=== PATIENT | female | born 2000 | race Caucasian/White ===

== ENCOUNTER 2019-03-19 11:04 | Observation (INO) | payer BC, OTHER ==
--- OUTSIDE RECORDS SUMMARY | 2019-03-19 11:21 | XMS REPORT | Continuity of Care Document ---
:2000 External Reference #:[id number] Author Name Gabe Barrett MD (transmitted by agent of provider Alyssa Crane) Address [address], [place] [address] Problems Active Problems Provider Date Chronic migraine without aura Zahira Mccabe MD Onset: 05/02/2017 Social History Type Date Description Comments Sex Unknown ETOH Use Occasionally consumes alcohol Tobacco Use Start: Unknown Patient has never smoked Smoking Status Reviewed: 03/16/19 Patient has never smoked Allergies, Adverse Reactions, Alerts Description No Known Drug Allergies Medications Active Medications SIG Qnty Indications Ordering Provider Date Sumatriptan Succinate 1 tab may repeat 14tabs Gabe Barrett MD 2018 once in 2 hours 100mg Tablets max 2 days a week Butalbital/Acetaminop take 1 capsule as 5caps Gabe Barrett MD 2018 hen/Caffeine needed for bad migraine n mdd 1 50-325-40mg Capsules Naproxen 1 up to twice a 60tabs Zahira Mccabe MD 05/01/2017 500mg Tablets day as needed for migraine with sumatriptan. avoid using more than 2 to 3 times per week Promethazine HCL take 1 tablet for Zahira Mccabe MD 05/01/2017 25mg nausea with Tablets migraine Vitamin D3 Complete 1 by mouth every Unknown day Tablets Vitamin C 1 by mouth every Unknown W/Vitamin E day [id number] Capsules Vitamin B 12 1 tab daily Unknown 100mg Tablets Claritin 1 tab daily as Unknown 10mg Capsules needed Folic Acid take one tablet Unknown 400mcg by mouth every Tablets day (supplement) Aviane 1 tab by mouth Sadie Beckman 0.1-20mg-mcg every day Levi, P.A. Tablets Immunizations Description No Information Available Vital Signs Date Vital Result Comment 03/16/2019 10:56am Height 65 inches 5'5" Weight 164.00 lb Heart Rate 68 /min BP Systolic Sitting 128 mmHg BP Diastolic Sitting 96 mmHg Respiratory Rate 16 /min BMI (Body Mass Index) 27.3 kg/m2 04/22/2018 11:50am Height 65 inches 5'5" Weight 155.00 lb BP Systolic Sitting 122 mmHg BP Diastolic Sitting 72 mmHg BMI (Body Mass Index) 25.8 kg/m2 Height Percentile 61 % Weight Percentile 84th Results Description No Information Available Procedures Description No Information Available Medical Devices Description No Information Available Encounters Description No Information Available Assessments Date Code Description Provider 03/16/2019 G43.719 Chronic migraine without aura, intractable, Gabe Barrett MD without status migrainosus Plan of Treatment Future Appointment(s):03/21/2020 10:30 am - Gabe Barrett MD at [facility] [id number]/16/2019 - Gabe Barrett MDG43.719 Chronic migraine without aura, intractable, without status migrainosusComments:will increase her sumitriptan to 100mg now and will take twice today and if not better will take 800mg ibruprofen with the secodn dose and will try to get sleep if this does not work she will call tomorrow and will start on short course of steroids. Her migraines have responded well to botox and I discussed ajovy as an alternative but things are going well enough that a change may be as or more likely to worsen things then to improve things. Will continue botox.Follow up: 1 year but sooner if still has problems Functional Status Description No Information Available Mental Status Description No Information Available Referrals Description No Information Available
--- OUTSIDE RECORDS SUMMARY | 2019-03-19 11:21 | XMS REPORT | Continuity of Care Document ---
:2000 External Reference #:[id number] Author Name Gabe Barrett MD (transmitted by agent of provider Emily Mauro) Address [address], [place] [address] Problems Active Problems Provider Date Chronic migraine without aura Zahira Mccabe MD Onset: 05/02/2017 Social History Type Date Description Comments Sex Unknown ETOH Use Occasionally consumes alcohol 1-2 drinks per week Tobacco Use Start: Unknown Patient has never smoked Smoking Status Reviewed: 03/19/19 Patient has never smoked Allergies, Adverse Reactions, Alerts Active Allergies Reaction Severity Comments Date Sea Mist 03/19/2019 Inactive Allergies NKDA 05/02/2017 Medications Active Medications SIG Qnty Indications Ordering Provider Date Prednisone 5 tabs for 4 days 60tabs Gabe Barrett MD 03/17/2019 10mg Tablets then 4 tabs by mouth for 4 days 3 tabs for 4 days 2 tabs by mouth for 4 days 1 tab by mouth for 4 days Sumatriptan Succinate 1 tab may repeat 14tabs [...] by mouth every Unknown W/Vitamin E day [id number] Capsules Vitamin B 12 1 tab daily Unknown 100mg Tablets Claritin 1 tab daily as Unknown 10mg Capsules needed Folic Acid take one tablet Unknown 400mcg by mouth every Tablets day (supplement) Aviane 1 tab by mouth Sadie Beckman 0.1-20mg-mcg every day Levi, P.A. Tablets Immunizations Description No Information Available Vital Signs Date Vital Result Comment 03/19/2019 9:37am Height 65 inches 5'5" Weight 150.00 lb Heart Rate 68 /min BP Systolic 122 mmHg BP Diastolic 82 mmHg BMI (Body Mass Index) 25.0 kg/m2 03/16/2019 10:56am Height 65 inches 5'5" Weight 164.00 lb Heart Rate 68 /min BP Systolic Sitting 128 mmHg BP Diastolic Sitting 96 mmHg Respiratory Rate 16 /min BMI (Body Mass Index) 27.3 kg/m2 Results Description No Information Available Procedures Description No Information Available Medical Devices Description No Information Available Encounters Type Date Location Provider Dx Diagnosis Office Visit 03/19/2019 [facility] Gabe Barrett, G43.719 Chronic migraine 9:30a [facility] MD w/o aura, intractable, w/o stat migr Assessments Date Code Description Provider 03/19/2019 G43.719 Chronic migraine without aura, intractable, Gabe Barrett MD without status migrainosus 03/16/2019 G43.719 Chronic migraine without aura, intractable, Gabe Barrett MD without status migrainosus Plan of Treatment Future Appointment(s):03/21/2020 10:30 am - Gabe Barrett MD at [facility] Scevyt8303/19/2019 - Gabe Barrett MDG43.719 Chronic migraine without aura, intractable, without status migrainosusNew Xrays:MRI Brain W/O, Ordered: 03/19/19Comments:Has had persistent severe headache that has not improved with steroids and I am recommending that she go to er to see if meds there can break the headache and if not she may need to come in for dhe or other treatment.Discussed that she has been on multiple oral prophylactic meds in the past without help and so if the headaches persist would consider switching the botox to ajovy.Had mri in 2010 and will repeat as outpatientFollow up:er here in 3 weeks Functional Status Description No Information Available Mental Status Description No Information Available Referrals Description No Information Available
--- NOTE | 2019-03-19 12:12 | ED ---
Headache - HPI Summary HPI Summary: This patient is a 18 year old female presenting to [facility] with a chief complaint of migraine. She reports a Hx of the same. She states she had this migraine for 4-5 days since she had recovered from a cold. She reports dizziness as well. She reports her pain to be 8/10 in severity. She is concerned about this migraine because of how long its lasting. She normally does not come to the ER except for one other instance where the migraine lasted 30 days. She states she has not had one this severe in 2 years. She takes botox injections for her migraines. Pt denies any fever, chills, erythema of eyes, sore throat, CP, SOB, cough, abdominal pain, N/V, dysuria, hematuria, myalgia, edema, or rash. - History Of Current Complaint Chief Complaint: EDHeadache Stated Complaint: MIGRAINE PER PT MOM Time Seen by Provider: 03/19/19 12:05 Hx Obtained From: Patient Onset/Duration: Started days ago Timing: Constant, Days - Allergies/Home Medications Allergies/Adverse Reactions: Allergies Allergy/AdvReac Type Severity Reaction Status Date / Time No Known Allergies Allergy Verified 04/07/19 14:44 Home Medications: Home Medications Butalb/Acetaminophen/Caffeine [Zcznuw-[id number]-Kfqn 50-325-40] 1 cap PO DAILY PRN 03/19/19 [History Confirmed 03/19/19] Levonorgestrel-Ethin Estradiol [Levonor-Eth Estrad 0.1-0.02 mg] 1 tab PO DAILY 03/19/19 [History Confirmed 03/19/19] LoraTADine TAB(NF) [Claritin 10 MG TAB(NF)] 10 mg PO DAILY PRN 03/19/19 [ History Confirmed 03/19/19] Naproxen TAB* [Naprosyn 250 mg TAB*] 500 mg PO BID PRN 03/19/19 [History Confirmed 03/19/19] PMH/Surg Hx/FS Hx/Imm Hx GI History: Reports: Hx Gastroesophageal Reflux Disease Neurological History: Reports: Hx Headaches, Hx Migraine - Surgical History Surgery Procedure, Year, and Place: Tonsillectomy 2003. [place] teeth extraction 2010 Hx Anesthesia Reactions: No Infectious Disease History: No Infectious Disease History: Denies: Traveled Outside the [place] in Last 30 Days - Family History Known Family History: Positive: Non-Contributory - Social History Alcohol Use: Occasionally Substance Use Type: Reports: None Smoking Status (MU): Never Smoked Tobacco Have You Smoked in the Last Year: No Review of Systems Negative: Fever, Chills Positive: Photophobia. Negative: Erythema Negative: Sore Throat Negative: Chest Pain Negative: Shortness Of Breath, Cough Negative: Abdominal Pain, Vomiting, Nausea Negative: dysuria, hematuria Negative: Myalgia, Edema Negative: Rash Neurological: Other - Dizziness Positive: Headache All Other Systems Reviewed And Are Negative: No Physical Exam - Summary Physical Exam Summary: Constitutional: Well-developed, Well-nourished, Alert. (-) Distressed Skin: Warm, Dry HENT: Normocephalic; Atraumatic Eyes: Conjunctiva normal Neck: Musculoskeletal ROM normal neck. (-) JVD, (-) Stridor, (-) Tracheal deviation Cardio: Rhythm regular, rate normal, Heart sounds normal; Intact distal pulses; The pedal pulses are 2+ and symmetric. Radial pulses are 2+ and symmetric. (-) Murmur Pulmonary/Chest wall: Effort normal. (-) Respiratory distress, (-) Wheezes, (-) Rales Abd: Soft. (-) Tenderness, (-) Distension, (-) Guarding, (-) Rebound Musculoskeletal: (-) Edema Lymph: (-) Cervical adenopathy Neuro: Alert, Oriented x3, Strength normal, Cranial nerves II-XII are grossly intact. (-) Dysmetria, (-) Nystagmus, (-) Ataxia by finger to nose testing, (-) Sensory deficit. Psych: Mood and affect Normal Triage Information Reviewed: Yes Vital Signs On Initial Exam: Initial Vitals Temp Pulse Resp BP Pulse Ox 98.3 F 81 18 138/98 99 03/19/19 11:05 03/19/19 11:05 03/19/19 11:05 03/19/19 11:05 03/19/19 11:05 Vital Signs Reviewed: Yes Diagnostics - Vital Signs Vital Signs Temp Pulse Resp BP Pulse Ox 03/19/19 11:05 98.3 F 81 18 138/98 99 - Laboratory Result Diagrams: 03/19/19 15:53 03/20/19 06:44 Lab Statement: Any lab studies that have been ordered have been reviewed, and results considered in the medical decision making process. Re-Evaluation - Re-Evaluation First Eval Re-Evaluation Time: 13:53 Change: Unchanged Comment: Headache is still an 8/10 in severity. Second Eval Re-Evaluation Time: 15:24 Comment: Still 7/10 pain Headache Course/Dx - Course Course Of Treatment: This patient is a 18 year old female presenting to [facility] with a chief complaint of migraine. - Diagnoses Provider Diagnoses: Headache - Physician Notifications Discussed Care Of Patient With: Lizbeth Ortiz - Neurologist Time Discussed With Above Provider: 14:02 - Administer 1 gram of depakote, in addition to the other medications. Discharge ED - Sign-Out/Discharge Documenting (check all that apply): Patient Departure - Discharge Plan Condition: Improved Disposition: ADMITTED TO [facility] - Billing Disposition and Condition Condition: IMPROVED Disposition: Admitted to [facility] - Attestation Statements Document Initiated by Scribe: Yes Documenting Scribe: Vince Stahl Provider For Whom Scribe is Documenting (Include Credential): Larry Peres MD Scribe Attestation: Vince Addison scribed for Larry Peres MD on 04/13/19 at 2244. Scribe Documentation Reviewed: Yes Provider Attestation: The documentation as recorded by the Vince alarcon accurately reflects the service I personally performed and the decisions made by Larry schmitz MD Status of Scribe Document: Viewed
[2019-03-19] MEDS ORDERED: Metoclopramide IV* 5 MG/ML 2 ML VIAL IV SLOW PU ONE ×2 (12:13→16:42)
[2019-03-19] MEDS ORDERED: Ketorolac INJ* 30 MG/ML 1 ML VIAL IV PUSH ONE (12:13)
[2019-03-19] MEDS ORDERED: diPHENhydraMINE IV* 50 MG/ML 1 ml VIAL (BENADRYL) IV ONE (12:13)
[2019-03-19] MEDS ORDERED: NS 0.9% 1000 ML** 1,000 ML IV ONE (12:13)
[2019-03-19] MEDS ORDERED: Dexamethasone IV* 4 MG/ML 1 ML (4 MG) IV SLOW PU ONE (13:53)
[2019-03-19] MEDS ORDERED: guaiFENesin/CODIENE 100mg/10mg 5 ML UDC PO ONE (13:53)
[2019-03-19] MEDS ORDERED: Magnesium Sulfate 2 GM IV* 2 GM/50 ML BAG IVPB ONE (13:53)
[2019-03-19] MEDS ORDERED: Valproic Acid IV(*) 100 MG/ML 5 ML VIAL (500 MG) IVPB ONE (14:00)
[2019-03-19] MEDS ORDERED: NS 0.9% 100 ML* 100 ML ONE (15:49)
[2019-03-19] MEDS ORDERED: VALPROIC ACID 1000 MG IV - ED ONCE IVPB ONE ×2 (16:00)
[2019-03-19 16:05] LABS: Hematocrit 44 % (35-47); Hemoglobin 15.3 g/dL (12.0-16.0); Mean Corpuscular HGB Conc 35 g/dL (31-36); Mean Corpuscular Hemoglobin 32 pg (27-31); Mean Corpuscular Volume 90 fL (80-97); Mean Platelet Volume 7.8 fL (7.4-10.4); Platelet Count 271 10^3/uL (150-450); Red Blood Count 4.84 10^6 /uL (3.70-4.87); Red Cell Distribution Width 12 % (10-15); White Blood Count 10.3 10^3/uL (3.5-10.8)
[2019-03-19] MEDS ORDERED: Acetaminophen TAB* 325 MG PO PRN (16:15)
[2019-03-19] MEDS ORDERED: Ondansetron INJ* 2 MG/ML VIAL IV PRN (16:15)
[2019-03-19] MEDS ORDERED: Cetirizine* 10 MG TAB PO PRN (16:18)
[2019-03-19] MEDS ORDERED: Lorazepam PYXIS KEY PRN (16:21)
[2019-03-19] MEDS ORDERED: LORazepam INJ* 2 MG/ML 1 ML VIAL IV PUSH PRN (16:21)
[2019-03-19] MEDS ORDERED: Dihydroergotamine (D.H.E.)* 1 MG/ML 1 ML AMP IV SLOW PU ONE ×2 (16:41→18:00)
[2019-03-19 16:42] LABS: Albumin 4.9 g/dL (3.2-5.2); Albumin/Globulin Ratio 1.8 (1-3); BUN/Creatinine Ratio 13.4 (8-20); C Reactive Protein 1.47 mg/L (<8.01); Calcium 9.5 mg/dL (8.6-10.3); EGFR African American 107.5 (>60); EGFR Non-African American 88.9 (>60); Globulin 2.7 g/dL (2-4); Potassium 4.3 mmol/L (3.5-5.0); Total Bilirubin 0.3 mg/dL (0.2-1.0); Total Protein 7.6 g/dL (6.4-8.9)
--- NOTE | 2019-03-19 17:05 | PN ---
Subjective Date of Service: 03/19/19 Length of Stay: 1 Days THIS IS A NEUROLOGY CONSULT NOTE Date of service: 03/19/2019 Consulting Provider: Larry Peres Reason for consult: intractable headache Interval History: Chief Complaints: headaches HPI: Ms. Richards is a 18-year-old female with history of migraine headache since the age of 6. She has failed multiple preventive and acute abortive therapy in the past. She has responded well to Botox therapy for which she has had for the past 2.5 years. On average, she has 2-3 headaches a month that respond well to abortive therapy with Imitrex. She is a student at [employer]. The patient presented with a five day history of intractable headache. The headache was described as pressure pain in the frontal and posterior region, 9/ 10 in severity, associated with photophobia and nausea. She denied any Valsalva induced headaches. She has no fevers or chills. The headache decrease in severity on Friday after Imitrex but returned on . She denied any new rash. She does not take any over the counter medications. She has had status migrainosus in the past and had to receive DHE three years ago. It did help that time. She has an MRI done in 2010 that was reported to be normal. She sees Dr. Barrett here in [place] and another neurologist who gives her the Botox in [place]. She last received Botox in January. There has been no change in the type of Botox manufacture. She denied any new visual disturbance, weakness or paresthesia. She has mild double vision and vertigo which she usually has with her headaches. Again, this is not a new type of headache but the typical migraine headache that has not improved with home therapies. She has tried occipital nerve blocks in the past with no success. She has not been offered CGRP inhibitors. In the ED, she received magnesium sulfate, steroids, Depakote, Reglan, Benadryl , and Toradol with no significant improvement in her pain. Neurology was consulted to initiate DHE therapy. Review of Systems: 14-points ROS was obtained and is otherwise negative except for what was mentioned in the HPI. Family History: Unchanged from Admission - Grandmother with migraine headache Social History: Unchanged from Admission - She attends college. She drinks EtOH occasionally around friends. She denied tobacco use. Past Medical History: Unchanged from Admission - Migraine headache Objective Active Medications: Acetaminophen (Tylenol Tab*) 650 mg PO Q6H PRN PRN Reason: MILD PAIN or TEMP > 100.4 Ascorbic Acid (Vitamin C Tab*) 500 mg PO DAILY RUTH Cyanocobalamin (Vitamin B12 Tab*) 1,000 mcg PO DAILY [facility] Dihydroergotamine Mesylate (D.H.E. 45*) 0.5 mg IV SLOW PU ONCE ONE Stop: 03/19/19 18:01 Folic Acid (Folvite Tab*) 1 mg PO DAILY [facility] Valproic Acid 1,000 mg/ Sodium (Chloride) 110 mls @ 110 mls/hr IVPB ED ONCE ONE Stop: 03/19/19 16:59 Last Admin: 03/19/19 15:53 Dose: 110 mls/hr Loratadine (Claritin Tab(Nf)) 10 mg PO DAILY PRN PRN Reason: Allergy Symptoms Lorazepam (Ativan Inj*) 0.5 mg IV PUSH BEDTIME PRN PRN Reason: Insomnia Miscellaneous (Ativan Pyxis Hall) 1 ea N/A .ATIVAN IV HALL PRN PRN Reason: PYXIS HALL Non-Formulary Medication (Levonorgestrel-Ethin Estradiol [Levonor-Eth Estrad 0.1 -0.02 Mg]) 1 tab PO DAILY [facility] Ondansetron HCl (Zofran Inj*) 4 mg IV Q6H PRN PRN Reason: NAUSEA Vital Signs 03/19/19 11:05 Temperature 98.3 F Pulse Rate 81 Respiratory 18 Rate Blood Pressure 138/98 (mmHg) O2 Sat by Pulse 99 Oximetry Intake and Output Last 24 Hours 03/17/19 03/18/19 03/19/19 03/20/19 06:59 06:59 06:59 06:59 Intake Total 1000 Balance 1000 Weight 150 lb Intake: IV Fluids 1000 Neurology Exam: General: Well nourished, well developed, and in no acute distress HEENT: Normocephelic/atraumatic, sclera anicteric, mucous membranes moist. Undilated fundoscopic examination shows sharp disc margins. Neck: Supple Chest: Clear to auscultation bilaterally Cardiovascular: Regular rate and rhythm without murmurs, rubs, gallops Abdomen: Soft, non-tender/non-distended Extremities: No clubbing, cyanosis, or edema Neurological Findings: Awake, alert, and oriented to person, place, and time. Speech: fluent without dysarthria, repetition intact Cranial Nerve: PERRL, EOM intact, VFF, no nystagmus, face symmetric bilaterally , facial sensation intact, hearing intact to finger rub bilaterally, palate elevates symmetrically, tongue midline, SCM and Trapezius s/s. Motor: s/s throughout, proximal and distal extremities x4 tone/bulk normal Sensation: intact to LT/PP bilaterally upper and lower extremities Deep Tendon Reflex: 2+ symmetric in the upper/lower extremities, Babinski - down going Finger to nose, rapid alternating movements intact without tremor, no dysdiadochokinesia Gait: intact with good arm swing and stride Result Diagrams: 03/19/19 15:53 03/19/19 15:52 Assessment/Plan 1. Status migrainosus: migraine headache lasting >72 hours - Failed abortive therapy with sumatriptan, Reglan, Benadryl, Toradol, mag sulfate, Depakote, and Decadron. - Decision to start DHE was discussed with the patient, mother, and Dr. Barrett. The patient and mother are aware of the cardiovascular risks with DHE therapy. We have agreed to start the medication after the risks and benefits were discussed with the patient and mother. - I spoke with pharmacy and confirmed that we have DHE available Recommendations: - Give Reglan 10 mg IV over 2 minutes, 15 minutes later, please give DHE 0.5 mg IV over 2 minutes (TEST DOSE). - Check her BP and EKG following a test dose. If she tolerates DHE without any chest pain, then proceed with another dose of 0.5 mg IV within an hour of the TEST DOSE. - If headache improves, then continue Reglan 10 mg every 8 hours as needed for a total of 5 doses, and DHE 0.5 mg IV q 8 hours for the next 48 hours. - If headache persists, and the patient has no nausea, then repeat DHE 1 mg IV every 8 hours for 48 hours - If she becomes severely nauseated, then hold the DHE and continue Reglan every 8 hours until nausea improves. Then restart DHE with a lower dose (keep her on 0.5 mg IV every 8 hours). Abort therapy if the patient develops chest pain, EKG changes, or continues to have nausea. - Telemetry - Neuro checks every 4 hours - Start magnesium oxide 400 mg daily - She would be a great candidate for CGRP inhibitors to be started as an outpatient Signed out to Dr. Ferreira who will follow-up tomorrow. Discussed with Hai Montes.
[2019-03-19] MEDS ORDERED: Metoclopramide IV* 5 MG/ML 2 ML VIAL IV SLOW PU PRN (18:42)
--- NOTE | 2019-03-19 19:45 | HP ---
CC: Ady Guevara [place]; Dr. Lizbeth Ortiz; Dr. Gaeb Barrett * ADMISSION HISTORY AND PHYSICAL: DATE OF ADMISSION: 03/19/19 PRIMARY CARE PROVIDER: Ady Guevara [place]. MY ATTENDING WHILE IN THE HOSPITAL: Dr. Aminta Moore.* (DICTATED BY YULY SIMMONS) CONSULTING NEUROLOGIST: Dr. Lizbeth Ortiz. OUTPATIENT NEUROLOGIST: Dr. Gabe Barrett. CHIEF COMPLAINT: Migraine x5 days. HISTORY OF PRESENT ILLNESS: Ms. Richards is a 18-year-old female with past medical history significant only for chronic migraines, generally well controlled with Botox injections, who this last Friday developed a cough, which was interfering with her sleep and then on Friday developed a migraine, which is typical for her in the front and the back of her head with a pressure like sensation, nonpounding, not associated with nausea or vomiting. The patient has this approximately every 8 months as a breakthrough from her Botox, but when she was not on the Botox, has chronic daily headaches. The patient had no other respiratory symptoms, no other fevers, chills, chest pain, or shortness of breath. No pain with urination. No abnormal menstruation. The patient on Friday took sumatriptan twice with decrease in her headache, but no other effect. The patient went to follow up with her neurologist on Friday, was prescribed prednisone, was given ibuprofen and sumatriptan at an increased dose as well as Fioricet, none of these helped. The patient's last Botox injection was on 02/17/19. The patient has been feeling somewhat dizzy, but has not had any decrease in her intake or output. The patient does not have any chest pain. The patient has previously been admitted one time to the hospital for DHE protocol approximately 3 years ago. The patient at that time had agitation associated with the medication that she was given and I believe it was Keppra. The patient's headache is currently 7/10 and is made somewhat worse by light. The patient does generally have an aura that she describes as a general feeling of unwellness. The patient is very quiet and most of the patient's history is provided by her mother. The patient denies other symptoms or sick contacts or changes in medications. Due to concern for status migrainosus, we were asked to evaluate the patient for admission to the hospital. PAST MEDICAL HISTORY: Chronic migraines, GERD, scoliosis. PAST SURGICAL HISTORY: Tonsillectomy. MEDICATIONS: 1. Botox injections. 2. Imitrex 50 mg p.o. daily. 3. Prednisone 50 mg p.o. daily, the patient is on day 3. 4. Folic acid 1 mg p.o. daily. 5. Vitamin B12 1000 mcg p.o. daily. 6. Vitamin D3 1000 units p.o. daily. 7. Vitamin C 500 mg p.o. daily. 8. Phenergan 25 mg p.o. q.6 hours as needed. 9. Valium 10 mg p.o. daily as needed. 10. Naproxen 500 mg p.o. b.i.d. as needed. 11. Fioricet 50/325/40 one capsule daily as needed. 12. Levonorgestrel/ethinyl estrogen 1 tab p.o. daily. ALLERGIES: No known drug allergies. FAMILY HISTORY: The patient's mother has heart problem. The patient's father has high cholesterol. The patient's maternal grandfather of an [place]. The patient has several aunts who have chronic migraines. SOCIAL HISTORY: The patient never smoked. The patient drinks 2 to 3 drinks 1 time a week. The patient denies illicit drug use. The patient is student of [employer] and [employer]. The patient is not and has no children. The patient's surrogate decision maker will be her mother, Em Richards. REVIEW OF SYSTEMS: A 10-point review of systems was reviewed and is negative except as above in the HPI. PHYSICAL EXAMINATION GENERAL: The patient is a 18-year-old female who appears stated age and sitting comfortably in bed, in no acute distress. VITAL SIGNS: At the time of evaluation, temperature 98.3, pulse rate 81, respiratory rate 18, oxygen saturation 98% on room air, blood pressure 130/98. HEENT: Head: Normocephalic, atraumatic. Sclerae anicteric. No conjunctival injection. Nasal mucosa moist. Oral mucosa moist. No pharyngeal erythema, discharge, or exudate. NECK: Supple, nontender. No lymphadenopathy. No carotid bruits auscultated. No JVD. RESPIRATORY: Clear to auscultation bilaterally. No wheezes, rales, or rhonchi. Good air exchange bilaterally. CARDIAC: Regular rate and rhythm. No clicks, murmurs, gallops, or rubs. Pulses are 2+ in the bilateral dorsalis pedis, posterior tibialis, and radial areas. ABDOMEN: Soft, nontender, nondistended. Bowel sounds present and normoactive in all 4 quadrants. No hepatosplenomegaly. No abdominal bruits auscultated. No hepatojugular reflux. GENITOURINARY: No suprapubic or CVA tenderness. NEURO: Cranial nerves II through XII intact. No focal deficits. Alert and oriented x3. PSYCHIATRIC: Pleasant and cooperative. SKIN: Clean, dry, and intact. No rashes. DIAGNOSTIC STUDIES/LAB DATA: Pending. Studies: None. ASSESSMENT AND PLAN: Impression: Ms. Richards is a 18-year-old female with past medical history significant for chronic migraines, who is currently on day 5 of some migraines. She will be admitted to the hospital for DHE protocol for management of status migrainosus. 1. Status migrainosus. The patient does have a headache constantly for 5 days now, resistant to outpatient medications including prednisone, naproxen, sumatriptan x4 doses, Fioricet. The patient had slight improvement in the emergency department with Toradol, magnesium, Reglan, and is currently pending valproic acid infusion. The patient was seen in consultation by Dr. Lizbeth Ortiz of Neurology and the patient will be admitted to the hospital for DHE protocol. This will be managed primarily by Neurology with a test dose in association with the Reglan the patient has received followed by q.8 hour dosing per well-established protocol. The patient will be continued at this time on her prednisone dosing and will able to be tapered soon. The patient was admitted previously with DHE protocol and this worked very well for her, though she did become very agitated while in the hospital and needed Ativan for sleeping, which worked very well, this will be provided at a low dose. 2. Gastroesophageal reflux disease. The patient will be monitored closely for this with high dose prednisone. 3. FEN: The patient will have a regular unrestricted diet. Fluids are not indicated. 4. DVT prophylaxis: The patient is a low risk. The patient will manage with ambulation. 5. Disposition: The patient will be admitted to observation to the hospital. TIME SPENT: Approximately 45 minutes was spent on the admission of this patient , 20 of which was spent [id number] with the patient, obtaining history and physical, and discussing treatment plan. This plan has been discussed with my attending Dr. Aminta Moore, and she is in agreement. YULY SIMMONS [id number]/[facility] #: [id number] LIBERTAD
[2019-03-20] MEDS: Benzonatate CAP* 100 MG PO SCH ×2 (01:57→08:10)
[2019-03-20 02:09] LABS: Urine Appearance Cloudy; Urine Bilirubin Negative (Negative); Urine Blood Negative (Negative); Urine Color Yellow; Urine Glucose Negative (Negative); Urine Ketones Trace (Negative); Urine Nitrite Negative (Negative); Urine Protein Negative (Negative); Urine Specific Gravity 1.008 (1.010-1.030); Urine Urobilinogen Negative (Negative)
[2019-03-20] MEDS: Dihydroergotamine (D.H.E.)* 1 MG/ML 1 ML AMP IV SLOW PU SCH ×2 (03:49→11:00)
[2019-03-20 07:49] LABS: BUN/Creatinine Ratio 13.6 (8-20); Calcium 10.1 mg/dL (8.6-10.3); EGFR African American 109.1 (>60); EGFR Non-African American 90.1 (>60); Magnesium 2.5 mg/dL (1.9-2.7); Potassium 4.1 mmol/L (3.5-5.0)
[2019-03-20] MEDS ORDERED: LEVONORGESTREL ETHIN ESTRADIOL PO SCH (09:00)
[2019-03-20] MEDS ORDERED: Folic Acid TAB* 1 MG PO SCH (09:00)
[2019-03-20] MEDS ORDERED: Ascorbic Acid TAB* 500 MG PO SCH (09:00)
[2019-03-20] MEDS ORDERED: predniSONE TAB* 10 MG PO SCH (09:00)
[2019-03-20] MEDS ORDERED: Cyanocobalamin TAB* 500 MCG PO SCH (09:00)
[2019-03-20] MEDS ORDERED: predniSONE TAB* 50 MG PO ONE (09:00)
[2019-03-20 11:39] VITALS: BP 125/82
--- NOTE | 2019-03-20 13:51 | CONS ---
NEUROLOGY CONSULT FOLLOWUP: DATE OF FOLLOWUP: 03/20/19 LOCATION: She is an inpatient in room 433. HOSPITALISTS: Dr. De Anda and Dr. Garcia. CHIEF COMPLAINT: Headache. INTERVAL HISTORY: Since yesterday, Charo feels much better. She was having headaches near the end of her DHE 8-hour cycle, but as of midday today she has a headache of about 1. She wants to go home . She did not get very good sleep last night. She had some nausea, but not currently. I went over the history a bit with her mother who is present as well as Charo. She had a last Botox injection in her home [facility] in January. She has not had a bad migraine since last . She would get occasional headaches responsive to Imitrex 50 mg orally. This particular headache started Friday and would not go away after multiple doses of Imitrex and starting steroids on Friday . MEDICATIONS: Reviewed and she has been receivin. Dihydroergotamine 0.5 mg IV slow push every 8 hours. 2. Metoclopramide 10 mg IV slow push q.8 hours as needed for nausea. 3. Lorazepam 0.5 mg IV p.r.n. insomnia. 4. Folic acid. PHYSICAL EXAM: She is awake and alert and well nourished. Temperature 98.5, blood pressure 125/82, heart rate 52 and regular. Respiratory rate is 16 and oxygen saturation is 100% on room air. She is a good historian. Her face is flushed. Speech is clear. LABORATORY DATA: Includes a normal CBC yesterday when she was admitted and normal chemistry profile other than a glucose of 134. Liver enzymes are normal. IMPRESSION AND PLAN: Impression is that of status migrainosus which has broke. She received IV Depak ote in the emergency room 1 dose and DHE and Reglan since. I told her not to take Imitrex when she goes back for at least a day or two. I told her to take napr oxen, which she has at home if she has recurrence of headache. We talked about possibly getting sumat riptan injectable as a rescue medication if her sumatriptan orally fails in the future. I told her t o stop steroids as they could aggravate insomnia and probably what she needs the most at this point i s some sleep. She can follow up with Dr. Barrett as an outpatient. I discussed my recommendation [facility] Dr. Garcia and Dr. De Anda. [id number]/[facility] #: [id number]
--- NOTE | 2019-03-20 15:23 | PN ---
Subjective Date of Service: 03/20/19 Interval History: Patient feels her symptom has improved alot. No nausea or vomiting Wants to go home Objective Vital Signs - 8 hr 03/20/19 03/20/19 03/20/19 07:45 08:14 11:38 Temperature 98.2 F 98.5 F Pulse Rate 64 52 Respiratory 16 16 16 Rate Blood Pressure 119/73 125/82 (mmHg) O2 Sat by Pulse 98 100 Oximetry Oxygen Devices in Use Now: None Exam: Aguilar is lying on a bed with no acute distress HEENT: Normocephalic and atraumatic Lungs: Clear with no added sounds Heart: S1/S2 heard with no murmur Abdomen: Soft, nondistended and nontender. Normal BS sound Extremities: Normal Neuro: Alert, conscious and oriented. Result Diagrams: 03/19/19 15:53 03/20/19 06:44 Assess/Plan/Problems-Billing Assessment: 18 y/o F with h/o Migraine presented with intractable headache for 5 days. Refractory to all treatment. Diagnosed as status asthmaticus. Treated with DHE; improved - Patient Problems (1) Status migrainosus Status: Acute Code(s): G43.901 - MIGRAINE, UNSP, NOT INTRACTABLE, WITH STATUS MIGRAINOSUS SNOMED Code(s): 977260057 Comment: headache more than 72 hours unresponsive to treatment; NSAID, Triptans, steroids treated with DHE with reglan improved (2) DVT prophylaxis Status: Acute Code(s): Z29.9 - ENCOUNTER FOR PROPHYLACTIC MEASURES, UNSPECIFIED SNOMED Code(s): 299617828 Comment: ambulatory (3) Full code status Status: Acute Code(s): Z78.9 - OTHER SPECIFIED HEALTH STATUS SNOMED Code(s) : 317086987 Status and Disposition: Inpatient d/c today Attending: Lisa De Anda Attestation Documenting Resident: Halle Blanco Supervising Physician: Lisa De Anda Attestation: This service has been performed in part by a resident under the direction of a teaching physician.I, Lisa De Anda, performed the service, or was physically present during the critical, or sam portions of the service, furnished by the resident. I participated in the management of the patient.
--- NOTE | 2019-03-20 23:11 | DS ---
DISCHARGE SUMMARY: DATE OF ADMISSION: 03/19/19 DATE OF DISCHARGE: 03/20/19 PRIMARY CARE PHYSICIAN: Dr. Fernie Conley, [place], [place]. PRIMARY DIAGNOSIS: Status migrainosus. CONSULTS: Dr. Ferreira, Neurology. DISCHARGE MEDICATIONS: 1. Naproxen 500 mg twice a day as needed for migraine. 2. Acetaminophen 650 mg every 6 hours as needed for migraine. 3. Fioricet 1 cap daily as needed for migraine. 4. Vitamin C 500 mg daily. 5. Vitamin D3 1000 units daily. 6. Promethazine 25 mg every 6 hours as needed for nausea. 7. Vitamin B12 1000 mcg daily. 8. Folic acid 1 mg daily. 9. Levonorgestrel-estradiol 1 tablet daily. 10. Loratadine 10 mg daily. HISTORY OF PRESENT ILLNESS: Ms. Richards is a 18-year-old woman with past medical history of chronic migraines, which have been generally controlled with Botox injections, who has recently developed a cough which was interfering with her sleep. Then, approximately 5 days prior to admission, she developed a migraine which is typical for her in the front and back of her head with pressure-like sensation, nonpounding, not associated with nausea or vomiting. The patient gets this approximately every 8 months as a breakthrough from her Botox, but when she was not on the Botox, she had this type of headache daily. She has no other respiratory symptoms. No fevers, chills, chest pain, or shortness of breath. Denies dysuria, abnormal menstruation. One day after the migraine started, the patient took sumatriptan twice with decrease in her headache, but no other effect. She went to follow up with her neurologist 2 days prior to presentation, was prescribed prednisone, gave ibuprofen and sumatriptan at an increased dose as well as Fioricet, but none of these had helped. The patient's last Botox injection was last month. She has been feeling somewhat dizzy but has not had any decrease in her urine output. The patient previously had been admitted to the hospital for DHE protocol; this was approximately 3 years ago. At that time, she had agitation associated with the medication that she was given and it possibly was Keppra. HOSPITAL COURSE: In the emergency room, the patient was given Benadryl, dexamethasone, Toradol, mag sulfate, Depakote to no effect. A decision was made to start DHE protocol. After discussion with mother, the patient, and Dr. aBrrett of Neurology, and the patient's outpatient neurologist, the patient was given Reglan IV 15 minutes before DHE IV and her headaches improved, but she had recurrence at the end of her first DHE 8-hour cycle, with improvement on repeat. By midday on day of discharge, she reports her headache was 1/10 and wanted to go home. She reports she did not get good sleep last night and wants to be in an environment where she can sleep better. She was educated by neurology consult service to stop her prednisone and maintain good sleep hygiene. She was educated not to take Imitrex for at least the next couple of days, but to take naproxen as needed for headache. She was also educated to consider sumatriptan injectable as rescue medication if her oral medicines fail. DISCHARGE PLAN: The patient will follow up with her PCP as well as Dr. Barrett of [facility]. Her medications should be continued as above with the most significant change to stop her prednisone dose. She was also educated to avoid frequent use of Fioricet if that medication is even needed at all. She should maintain good sleep hygiene with goal of getting at least 8 hours of sleep per night. She was educated on return precautions which include, but are not limited to, recurrence of severe headache not improved with her home medications or new symptom of chest pain. She should have a healthy diet, no processed foods, and resume activity as tolerated. DISPOSITION: To home. CONDITION: Good. TIME SPENT: Approximately 60 minutes was spent on discharge of this patient, more than half of which was spent with care and coordination at bedside for interview and exam. [id number]/[facility] #: [id number] [facility] HOSPITALEduardo
[2019-03-21] MEDS ORDERED: predniSONE TAB* 20 MG PO SCH (09:00)
== END 2019-03-20 14:30 | disposition home or self-care (01) ==
LOC: ED 11:04 → MEDTELE 16:15
PROVIDERS: ADMIT Internal Medicine; ATTEND Internal Medicine
DX: G43.001 Migraine without aura, not intractable, with status migrainosus (principal); Z79.899 Other long term (current) drug therapy; K21.9 Gastro-esophageal reflux disease without esophagitis; M41.9 Scoliosis, unspecified; H53.149 Visual discomfort, unspecified
CPT/HCPCS: 36415; 80048; 80053; 81003; 83605; 83735; 85027; 86140; 93005; 96365; 96366; 96367; 96375; 96376; 99285; A9270-GY; G0378; J1100; J1110; J1200; J1885; J2765; J3475; J7512